=== PATIENT | female | born 1985 | race Hispanic/Latino ===

== ENCOUNTER 2022-07-25 05:33 | Inpatient (IN) | payer OTHER ==
[2022-07-24 11:37] LABS: Platelet Count 294 10x3/uL (150-450)
[2022-07-24 12:15] LABS: SARS-CoV-2 NAA Rapid Test Not Detected (NotDetected)
[2022-07-24 12:31] LABS: Syphilis Antibody Nonreactive (Nonreactive); Syphilis Antibody Index 0.03 S/CO (<1.00 Non-Reactive)
[2022-07-24 12:32] LABS: HBSAg Index 0.11 S/CO (0-0.99); Hep B Surf Ag Non-Reactive S/CO (NonReactive)
[2022-07-25] MEDS ORDERED: hydrALAZINE 20 MG/ML VIAL SLOW IVP PRN ×2 (05:58→13:22)
[2022-07-25] MEDS ORDERED: Bicitra 30 ML UDCUP PO PRN (05:58)
[2022-07-25] MEDS ORDERED: Famotidine/PF 20 mg/2ml Vial SLOW IVP PRN (05:58)
[2022-07-25] MEDS ORDERED: Ondansetron PF 4 MG/2 ML Vial IVP PRN ×3 (05:58→13:22)
[2022-07-25] MEDS ORDERED: CEFAZOLIN 2 GM in Sodium Chloride 0.9% 100 ML IVPB SCH (05:58)
[2022-07-25] MEDS ORDERED: Lactated Ringer's 1,000 ML IV SCH (05:58)
[2022-07-25] MEDS ORDERED: Promethazine HCl 25 MG/ML VIAL IM PRN ×3 (05:58→13:22)
[2022-07-25 06:00] VITALS: BMI 46.9
[2022-07-25] MEDS ORDERED: Morphine PF 10 MG/10 ML VIAL ONE (07:29)
[2022-07-25] MEDS ORDERED: Dexamethasone 4 mg/ml Vial ONE (07:29)
[2022-07-25] MEDS ORDERED: Ondansetron PF 4 MG/2 ML Vial ONE (07:29)
[2022-07-25] MEDS ORDERED: Oxytocin 10 UNITS/ML VIAL ONE (07:30)
[2022-07-25] MEDS ORDERED: Ketorolac Tromethamine 30 MG/ML VIAL ONE (07:30)
[2022-07-25] MEDS ORDERED: Phenylephrine 10 MG/ML VIAL ONE (07:30)
[2022-07-25] MEDS ORDERED: Meperidine HCl/PF 25 MG/ML VIAL SLOW IVP PRN (08:43)
[2022-07-25] MEDS ORDERED: diphenhydrAMINE 50 MG/ML VIAL IVP PRN (08:43)
[2022-07-25] MEDS ORDERED: Fentanyl 100 MCG/2 ML VIAL SLOW IVP PRN (08:43)
[2022-07-25] MEDS ORDERED: Naloxone HCl 0.4 mg/ml Vial IV PRN (08:43)
[2022-07-25] MEDS ORDERED: Moisturizing Cream (Eucerin) 113 GM JAR TOP PRN (08:43)
[2022-07-25] MEDS ORDERED: Promethazine HCl 25 MG SUPP PR PRN (08:43)
[2022-07-25] MEDS ORDERED: Naloxone HCl 0.4 mg/ml Vial IVP PRN ×2 (08:43)
[2022-07-25] MEDS ORDERED: Ondansetron HCl/PF 4 MG/2 ML Vial IVP PRN (08:43)
[2022-07-25] MEDS ORDERED: Communication Order-Pharmacy FS SCH (08:45)
[2022-07-25] MEDS ORDERED: Ketorolac Tromethamine 30 MG/ML VIAL IVP SCH (08:45)
[2022-07-25] MEDS ORDERED: NS w/ Oxytocin 30 units 500 ML ONE (10:00)
[2022-07-25] MEDS ORDERED: Acetaminophen 325 MG TAB PO PRN (13:22)
[2022-07-25] MEDS ORDERED: Lanolin Ointment 7 GM TUBE TOP PRN (13:22)
[2022-07-25] MEDS ORDERED: diphenhydrAMINE 25 MG CAP PO PRN (13:22)
[2022-07-25] MEDS ORDERED: Bisacodyl 10 MG SUPP PR PRN (13:22)
[2022-07-25] MEDS ORDERED: Boostrix 0.5 ML (Tdap) VIAL (>/=7 yrs of age) IM ONE (13:22)
[2022-07-25] MEDS ORDERED: Prenatal Vitamin 1 TAB PO SCH (13:45)
[2022-07-25] MEDS ORDERED: Ferrous Sulfate 325 MG TAB PO SCH (13:45)
[2022-07-25] MEDS ORDERED: Docusate 100 MG CAP PO SCH (13:45)
[2022-07-25] MEDS: Docusate 100 MG CAP PO SCH (20:39)
[2022-07-25] MEDS: Ketorolac Tromethamine 30 MG/ML VIAL IVP PRN (20:39)
[2022-07-25] MEDS ORDERED: HYDROcodone/Acetaminophen 5/325 mg Tablet PO PRN (21:00)
[2022-07-26] MEDS: Ferrous Sulfate 325 MG TAB PO SCH ×2 (02:39→16:13)
[2022-07-26 03:56] LABS: Hemoglobin 9.9 g/dL (12.0-15.5); Mean Corpuscular HGB CONC 33.3 g/dL (32.0-36.0); Mean Corpuscular Hemoglobin 29.8 pg (27.0-33.0); Mean Corpuscular Volume 89.5 fl (81.6-98.3); Platelet Count 209 10x3/uL (150-450); RBC Distribution Width 13.8 % (11.5-14.5); Red Blood Cell (RBC) Count 3.32 10x6/uL (3.90-5.03); White Blood Cell (WBC) Count 9.7 10x3/uL (3.5-10.5)
[2022-07-26] MEDS: Ketorolac Tromethamine 30 MG/ML VIAL IVP PRN (07:25)
[2022-07-26] MEDS: Prenatal Vitamin 1 TAB PO SCH (08:49)
[2022-07-26] MEDS: Docusate 100 MG CAP PO SCH ×2 (08:49→20:15)
[2022-07-26] MEDS: Ibuprofen 800 MG TAB PO SCH (12:55)
[2022-07-26] MEDS: Simethicone Chewable 80 MG TAB PO PRN (12:55)
[2022-07-26] MEDS: HYDROcodone/Acetaminophen 5/325 mg Tablet PO PRN (20:15)
[2022-07-27] MEDS: Ibuprofen 800 MG TAB PO SCH ×2 (00:14→05:53)
[2022-07-27] MEDS: Simethicone Chewable 80 MG TAB PO PRN (00:23)
[2022-07-27] MEDS: HYDROcodone/Acetaminophen 5/325 mg Tablet PO PRN (00:23)
[2022-07-27 01:03] VITALS: BP 140/66; TEMP 97.8
[2022-07-27] MEDS: Ferrous Sulfate 325 MG TAB PO SCH ×2 (10:17→10:18)
[2022-07-27] MEDS: Prenatal Vitamin 1 TAB PO SCH (10:19)
[2022-07-27] MEDS: Docusate 100 MG CAP PO SCH (10:19)
== END 2022-07-27 13:04 | disposition home or self-care (01) | DRG 788 ==
LOC: CSHLD 05:33 → CSHPED 13:18
PROVIDERS: ADMIT Student in an Organized Health Care Education/Training Program; ATTEND Student in an Organized Health Care Education/Training Program
PROC: 10D00Z1 Extraction of Products of Conception, Low, Open Approach (ICD-10-PCS; principal; 2022-07-25)
DX: O34.211 Maternal care for low transverse scar from previous cesarean delivery (principal); O69.81X0 Labor and delivery complicated by cord around neck, without compression, not applicable or unspecified; Z37.0 Single live birth; L27.0 Generalized skin eruption due to drugs and medicaments taken internally; T50.905A Adverse effect of unspecified drugs, medicaments and biological substances, initial encounter; O99.893 Other specified diseases and conditions complicating puerperium; Z98.890 Other specified postprocedural states; Z79.82 Long term (current) use of aspirin; Z80.0 Family history of malignant neoplasm of digestive organs; Z3A.39 39 weeks gestation of pregnancy; Z86.16 Personal history of COVID-19; Z20.822 Contact with and (suspected) exposure to COVID-19
CPT/HCPCS: 36415; 51702; 85014; 85018; 85027; 85049; 86780; 86850; 86900; 86901; 87340; J1100; J1200; J1885; J2274; J2370; J2405; J2590; U0002